=== PATIENT | male | born 1935 | race Caucasian/White ===

== ENCOUNTER 2021-03-04 16:41 | Inpatient (IN) ==
[2021-03-04 19:58] LABS: ABS Lymphocytes 0.5 10^3/ul (1.0-4.8); ABS Monocytes 0.1 10^3/ul (0-0.8); ABS Neutrophils 11.9 10^3/ul (1.5-7.7); Hematocrit 31 % (42-52); Hemoglobin 10.5 g/dL (14.0-18.0); Lymphocyte % 3.7 %; Mean Corpuscular HGB Conc 34 g/dL (31-36); Mean Corpuscular Hemoglobin 30 pg (27-31); Mean Corpuscular Volume 90 fL (80-94); Mean Platelet Volume 7.3 fL (7.4-10.4); Platelet Count 241 10^3/uL (150-450); Red Cell Distribution Width 15 % (10-15); White Blood Count 12.5 10^3/uL (3.5-10.8)
[2021-03-04 20:14] LABS: Anion Gap 17 mmol/L (2-11); Blood Urea Nitrogen 73 mg/dL (6-24); CO2 Carbon Dioxide 22 mmol/L (22-32); Calcium 9.6 mg/dL (8.6-10.3); Chloride 99 mmol/L (101-111); Glucose 199 mg/dL (70-100); Magnesium 2.5 mg/dL (1.9-2.7); Phosphorus 5.2 mg/dL (2.5-5.0); Potassium 4.7 mmol/L (3.5-5.0); Sodium 138 mmol/L (135-145); eGFR CKD-EPI 5.2 (>60)
[2021-03-04 21:06] LABS: Troponin I 5.72 ng/mL (<0.03)
[2021-03-04] MEDS ORDERED: Heparin 5000 UNITS/ML 1 mL VIAL SUBCUT SCH (22:00)
[2021-03-04 22:14] LABS: Hepatitis A Ab IgM Negative (Negative)
[2021-03-04 22:15] LABS: Hepatitis B Core IgM Nonreactive (Nonreactive)
[2021-03-04 22:27] LABS: Hepatitis C Antibody Negative (Negative)
[2021-03-05 00:01] LABS: Troponin I 6.07 ng/mL (<0.03)
[2021-03-05] MEDS: Heparin DRIP 25,000 UNITS BAG 25,000 UNITS/500 ML BAG IV SCH ×2 (00:46→19:29)
[2021-03-05] MEDS ORDERED: Heparin 5000 UNITS/ML 1 mL VIAL IV SCH (01:00)
[2021-03-05 01:41] LABS: Activated Partial Thrombo Time 96.5 seconds (26.0-38.0)
[2021-03-05] MEDS ORDERED: Furosemide 40 mg/4 ml IV VIAL IV SLOW PU ONE (03:17)
[2021-03-05 03:19] LABS: Troponin I 6.03 ng/mL (<0.03)
[2021-03-05 04:48] LABS: ABS Lymphocytes 1.2 10^3/ul (1.0-4.8); ABS Monocytes 0.2 10^3/ul (0-0.8); ABS Neutrophils 11.4 10^3/ul (1.5-7.7); Hematocrit 29 % (42-52); Hemoglobin 9.8 g/dL (14.0-18.0); Lymphocyte % 9.2 %; Mean Corpuscular HGB Conc 34 g/dL (31-36); Mean Corpuscular Hemoglobin 30 pg (27-31); Mean Corpuscular Volume 89 fL (80-94); Mean Platelet Volume 7.6 fL (7.4-10.4); Platelet Count 251 10^3/uL (150-450); Red Blood Count 3.25 10^6 /uL (4.18-5.48); Red Cell Distribution Width 16 % (10-15); White Blood Count 12.8 10^3/uL (3.5-10.8)
[2021-03-05 05:05] LABS: Calcium 9.4 mg/dL (8.6-10.3); Magnesium 2.6 mg/dL (1.9-2.7); Phosphorus 5.7 mg/dL (2.5-5.0); Potassium 4.5 mmol/L (3.5-5.0); eGFR CKD-EPI 5.2 (>60)
[2021-03-05 05:24] LABS: PCO2 Arterial 32 mmHg (35-45); PO2 Arterial 141 mmHg (80-100)
[2021-03-05] MEDS: B COMPLEX VITAMIN C FOLIC ACID 0.8 MG PO SCH (08:43)
[2021-03-05] MEDS ORDERED: Nitro 2% OINT (Nitroglycerin) 1 INCH/PAK TOPICAL ONE (12:05)
[2021-03-05 13:28] LABS: Troponin I 7.24 ng/mL (<0.03)
[2021-03-05 14:26] LABS: Hepatitis B Surface Antigen Nonreactive (Nonreactive)
[2021-03-05] MEDS: cefTRIAXone 1 gm/50 mL NS BAG 1 GM/50 ML BAG IVPB SCH (14:38)
[2021-03-05 14:48] LABS: Troponin I 15.82 ng/mL (<0.03)
[2021-03-05] MEDS: Azithromycin 500 mg/250 ml NS 500 MG/250 ML BAG IVPB SCH (15:48)
[2021-03-05] MEDS ORDERED: Midazolam 5 mg/5 ml VIAL 1 mg/ml 5 ml VIAL (5 mg) ONE (15:50)
[2021-03-05] MEDS ORDERED: fentaNYL 100 mcg/2 ml 50 MCG/ML VIAL ONE (15:50)
[2021-03-05] MEDS ORDERED: niCARdipine 0.1MG/ML IVPREMIX 20 MG/200 ML BAG IV ONE (15:51)
[2021-03-05] MEDS ORDERED: Heparin 1,000 UNIT/ML 10 ml (10,000 UNITS) CATHLAB/DIALYSIS ONE (15:51)
[2021-03-05] MEDS ORDERED: Heparin 2 UNITS/ML 1000 mls 3,000 ML IV ONE (15:51)
[2021-03-05] MEDS ORDERED: Iohexol 350 (CONTRAST) 200 ML MDV IV ONE ×2 (15:51→16:54)
[2021-03-05] MEDS ORDERED: Lidocaine 1% VIAL 10 MG/ML VIAL ONE (15:51)
[2021-03-05] MEDS ORDERED: nitroGLYCERIN DRIP 25,000 MCG/250 ML BTL ONE (15:51)
[2021-03-05 16:40] LABS: Hepatitis B Surface Ab Not Immune (Immune)
[2021-03-05] MEDS ORDERED: Lorazepam PYXIS KEY ONE (22:09)
[2021-03-05] MEDS ORDERED: Lorazepam PYXIS KEY PRN (22:09)
[2021-03-05] MEDS ORDERED: LORazepam 2 mg VIAL 1 ml IV PUSH ONE (22:09)
[2021-03-05] MEDS ORDERED: LORazepam 2 mg VIAL 1 ml ONE (22:10)
[2021-03-06 02:26] LABS: Urine Appearance Clear; Urine Bilirubin Negative (Negative); Urine Blood Negative (Negative); Urine Color Yellow; Urine Glucose 2+(150 mg/dL) (Negative); Urine Ketones Negative (Negative); Urine Nitrite Negative (Negative); Urine Protein 3+(>=500 mg/dL) (Negative); Urine Specific Gravity 1.023 (1.002-1.030); Urine Urobilinogen Negative (Negative)
[2021-03-06 02:29] LABS: Urine Bacteria Absent (Absent); Urine Red Blood Cell Absent (Absent); Urine Squamous Epithelial Cell Present (Absent); Urine White Blood Cell Trace(0-5/hpf) (Absent)
[2021-03-06] MEDS: Heparin DRIP 25,000 UNITS BAG 25,000 UNITS/500 ML BAG IV SCH (02:53)
[2021-03-06 04:54] LABS: ABS Lymphocytes 1.4 10^3/ul (1.0-4.8); ABS Monocytes 0.7 10^3/ul (0-0.8); ABS Neutrophils 12.7 10^3/ul (1.5-7.7); Hematocrit 25 % (42-52); Hemoglobin 8.5 g/dL (14.0-18.0); Lymphocyte % 9.7 %; Mean Corpuscular HGB Conc 34 g/dL (31-36); Mean Corpuscular Hemoglobin 30 pg (27-31); Mean Corpuscular Volume 90 fL (80-94); Mean Platelet Volume 7.8 fL (7.4-10.4); Platelet Count 209 10^3/uL (150-450); Red Blood Count 2.81 10^6 /uL (4.18-5.48); Red Cell Distribution Width 15 % (10-15); White Blood Count 14.9 10^3/uL (3.5-10.8)
[2021-03-06 05:13] LABS: ALT 14 U/L (7-52); AST 24 U/L (13-39); Albumin 3.5 g/dL (3.2-5.2); Albumin/Globulin Ratio 1.3 (1-3); Alkaline Phosphatase 53 U/L (35-149); Anion Gap 13 mmol/L (2-11); Blood Urea Nitrogen 68 mg/dL (6-24); CO2 Carbon Dioxide 22 mmol/L (22-32); Calcium 8.4 mg/dL (8.6-10.3); Chloride 99 mmol/L (101-111); Globulin 2.7 g/dL (2-4); Glucose 144 mg/dL (70-100); Magnesium 2.4 mg/dL (1.9-2.7); Phosphorus 5.9 mg/dL (2.5-5.0); Potassium 4.9 mmol/L (3.5-5.0); Sodium 134 mmol/L (135-145); Total Protein 6.2 g/dL (6.4-8.9); eGFR CKD-EPI 6.8 (>60)
[2021-03-06] MEDS: B COMPLEX VITAMIN C FOLIC ACID 0.8 MG PO SCH (08:21)
[2021-03-06] MEDS: cefTRIAXone 1 gm/50 mL NS BAG 1 GM/50 ML BAG IVPB SCH (08:21)
[2021-03-06] MEDS: Azithromycin 500 mg/250 ml NS 500 MG/250 ML BAG IVPB SCH (09:11)
[2021-03-06] MEDS ORDERED: Furosemide 100 mg/10 ml IV VIAL IV ONE (09:45)
[2021-03-06] MEDS ORDERED: Bumetanide IV 10 MG in Premix IV 0 ML IV SCH (12:00)
[2021-03-06 12:22] LABS: Cholesterol 124 mg/dL; HDL Cholesterol 36.2 mg/dL; LDL Cholesterol 62 mg/dL; Triglycerides 129 mg/dL
[2021-03-07 05:37] LABS: ABS Lymphocytes 1.9 10^3/ul (1.0-4.8); ABS Monocytes 1.1 10^3/ul (0-0.8); ABS Neutrophils 8.1 10^3/ul (1.5-7.7); Eosinophil % 0.4 %; Hematocrit 27 % (42-52); Hemoglobin 9.1 g/dL (14.0-18.0); Lymphocyte % 17.1 %; Mean Corpuscular HGB Conc 34 g/dL (31-36); Mean Corpuscular Hemoglobin 30 pg (27-31); Mean Corpuscular Volume 88 fL (80-94); Mean Platelet Volume 7.9 fL (7.4-10.4); Nucleated Red Blood Cells % 0.1; Platelet Count 222 10^3/uL (150-450); Red Blood Count 3.05 10^6 /uL (4.18-5.48); Red Cell Distribution Width 15 % (10-15); White Blood Count 11.2 10^3/uL (3.5-10.8)
[2021-03-07 05:59] LABS: Albumin 3.7 g/dL (3.2-5.2); Albumin/Globulin Ratio 1.3 (1-3); Calcium 8.6 mg/dL (8.6-10.3); Globulin 2.8 g/dL (2-4); Magnesium 2.2 mg/dL (1.9-2.7); Phosphorus 4.4 mg/dL (2.5-5.0); Potassium 4.5 mmol/L (3.5-5.0); Total Bilirubin 0.5 mg/dL (0.2-1.0); Total Protein 6.5 g/dL (6.4-8.9)
[2021-03-07 08:32] VITALS: BP 155/74
== END 2021-03-07 09:40 | disposition short-term general hospital (02) | DRG 871 ==
LOC: ED 16:41 → ICU 17:06 → EDHOLD 18:24 → ICU 22:00
PROVIDERS: ADMIT Internal Medicine; ATTEND Internal Medicine